=== PATIENT | male | born 1960 | race Caucasian/White ===

== ENCOUNTER 2019-10-25 21:47 | Emergency (ER) | payer OTHER ==
[~2019-10-25] VITALS: Ht 193 cm; Wt 113.6 kg
[2019-10-25 22:01] VITALS: BP 161/102
[2019-10-25] MEDS ORDERED: LIDOcaine 2% 10ml TOPICAL JELLY (Urojet) MM ONE (22:25)
[2019-10-25] MEDS ORDERED: ibuprofen tablet 400 MG TABLET PO ONE (22:25)
== END 2019-10-25 22:51 ==
LOC: ER 21:48
DX: Z04.3 Encounter for examination and observation following other accident (principal); Z86.73 Personal history of transient ischemic attack (TIA), and cerebral infarction without residual deficits; V99.XXXA Unspecified transport accident, initial encounter; Y93.89 Activity, other specified; Y92.410 Unspecified street and highway as the place of occurrence of the external cause; Y99.8 Other external cause status
CPT/HCPCS: 99283